=== PATIENT | male | born 2000 | race Caucasian/White ===

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

== ENCOUNTER 2024-06-06 12:39 | Emergency (ER) | payer MEDICAID, SELFPAY ==
[2024-06-06 12:40] VITALS: BP 127/73; PULSE 71; RESP 18; TEMP 37.2; O2SAT 98; BMI 21.6
--- NOTE | 2024-06-06 12:55 | EDS_ITS ---
HPI <ITZ Choi - Last Filed: 06/06/24 14:40> History of Present Illness Chief Complaint: Nausea/Vomiting Narrative Narrative: 24-year-old male states he had 3 drinks and a couple shots of alcohol last night. He vomited once before going to bed at 3:30 AM. He woke up around 10-11 and has vomited several times this morning. According to the person with him he looks pale and was sweaty while vomiting. He denies chest pain, abdominal pain, hematemesis. No recent lower hematochezia. He states he has alcohol maybe a couple times a week but is not a daily drinker. [facility] <ITZ Choi - Last Filed: 06/06/24 14:40> [facility] Medical History (Updated 06/06/24 @ 14:13 by ITZ Choi) Contact with and (suspected) exposure to other viral communicable diseases URI (upper respiratory infection) Home Medications ?Medication ?Instructions ?Recorded ?Last Taken ?Type famotidine 20 mg tablet (Pepcid) 20 mg PO BID 7 days # 14 tabs 06/06/24 Unknown Rx ondansetron 4 mg disintegrating 4 mg PO Q8H PRN PRN Na usea #10 tabs 06/06/24 Unknown Rx tablet Allergy/AdvReac Type Severity Reaction Status Date / Time No Known Allergies Allergy Verified 06/06/24 12:40 Social History Smoking Status: Never smoker ROS <ITZ Choi - Last Filed: 06/06/24 14:40> ROS ED ROS Narrative Constitutional: Negative for fever, chills, malaise. CVS: Negative for chest pain. Respiratory: Negative for shortness of breath. GI: Positive for nausea, vomiting. Negative for abdominal pain. EXAM <ITZ Choi - Last Filed: 06/06/24 14:40> Physical Exam Narrative Exam Narrative: CONST: Patient slightly shaky sitting in bed awake and alert. EYES: Normal inspection. ENT: Normal inspection, slightly dry mucous membranes. NECK: Normal inspection. RESP: No respiratory distress, CTAB. CVS: Regular rate and rhythm, no murmur, no gallop. ABD: Soft and nontender, no guarding or rebound, nondistended, no hepatosplenomegaly. SKIN: Color normal, no rash, warm, dry, intact. EXTREMITIES: Normal appearance, no pedal edema. NEURO: Alert and answering questions appropriately. PSYCH: Normal affect. Const Vital Signs: 06/06/24 12:40 06/06/24 14:21 Temperature 98.9 F 98.9 F Temperature Source Oral Pulse Rate 71 71 Respiratory Rate 18 18 Blood Pressure 127/73 H 127/73 H Blood Pressure Mean 91 91 Pulse Ox 98 98 Oxygen Delivery Method Room Air <Efe Mendez MD - Last Filed: 06/06/24 15:16> Physical Exam Const Vital Signs: 06/06/24 12:40 06/06/24 14:21 Temperature 98.9 F 98.9 F Temperature Source Oral Pulse Rate 71 71 Respiratory Rate 18 18 Blood Pressure 127/73 H 127/73 H Blood Pressure Mean 91 91 Pulse Ox 98 98 Oxygen Delivery Method Room Air MDM <TIZ Choi - Last Filed: 06/06/24 14:40> [facility] MDM Narrative Medical decision making narrative: History gathered from: Patient, family Differential includes but not limited to alcohol abuse, electrolyte derangement, PLACIDO, pancreatitis, gastritis 24-year-old male has acute nausea and vomiting after binge drinking alcohol last night. He appears nontoxic. Vital signs stable. He has slightly dry mucous membranes. His abdomen is soft, nontender. He was initially ordered IV fluids, Zofran, and Pepcid but then patient's family was concerned he never vomits like this after drinking alcohol so although he does not have abdominal pain I ordered blood work to further assess. WBC is 14.9 with the rest of his CBC being unremarkable. Sodium and potassium are normal. BUN 20, creatinine 0.93. Glucose is 62, CO2 17, anion gap 25. Liver enzymes minimally elevated with AST 48, ALT 50. Lipase normal at 20. He feels improved and was able to drink fluids and eat a snack in the ED. I prescribed Pepcid and Zofran as needed for home, I think he is appropriate to continually hydrate at home and return if symptoms worsen. I recommended to decrease alcohol use and he was discharged in stable condition. Lab Data Attestation: I reviewed the patient's lab results. Labs: Laboratory Results - last 24 hr 06/06/24 13:06 WBC 14.9 H RBC 5.61 Hgb 15.7 Hct 48.6 MCV 86.6 MCH 28.0 MCHC 32.3 RDW Std Deviation 42.9 RDW Coeff of Raul 13.4 Plt Count 270 MPV 10.2 Immature Gran % (Auto) 0.300 Neut % (Auto) 84.8 H Lymph % (Auto) 11.1 L [place] % (Auto) 3.3 Eos % (Auto) 0.2 Baso % (Auto) 0.3 Absolute Neuts (auto) 12.6 H Absolute Lymphs (auto) 1.65 Nucleated RBC % 0 Sodium 144 Potassium 3.5 Chloride 101 Carbon Dioxide 17.0 L Anion Gap 25 H BUN 20 H Creatinine 0.93 Estim Creat Clear Calc 123.90 Est GFR (MDRD) Non-Af 118 BUN/Creatinine Ratio 21.6 H Glucose 62 L Calcium 10.1 Total Bilirubin 0.86 AST 48 H ALT 50 H Alkaline Phosphatase 72 Total Protein 8.2 Albumin 5.2 H Globulin 3.0 Albumin/Globulin Ratio 1.7 Lipase 20 <Efe Mendez MD - Last Filed: 06/06/24 15:16> MDM History & Record Review Discussion w/independent historian: Patient and Significant other Lab Data Labs: Laboratory Results - last 24 hr 06/06/24 13:06 WBC 14.9 H RBC 5.61 Hgb 15.7 Hct 48.6 MCV 86.6 MCH 28.0 MCHC 32.3 RDW Std Deviation 42.9 RDW Coeff of Raul 13.4 Plt Count 270 MPV 10.2 Immature Gran % (Auto) 0.300 Neut % (Auto) 84.8 H Lymph % (Auto) 11.1 L [place] % (Auto) 3.3 Eos % (Auto) 0.2 Baso % (Auto) 0.3 Absolute Neuts (auto) 12.6 H Absolute Lymphs (auto) 1.65 Nucleated RBC % 0 Sodium 144 Potassium 3.5 Chloride 101 Carbon Dioxide 17.0 L Anion Gap 25 H BUN 20 H Creatinine 0.93 Estim Creat Clear Calc 123.90 Est GFR (MDRD) Non-Af 118 BUN/Creatinine Ratio 21.6 H Glucose 62 L Calcium 10.1 Total Bilirubin 0.86 AST 48 H ALT 50 H Alkaline Phosphatase 72 Total Protein 8.2 Albumin 5.2 H Globulin 3.0 Albumin/Globulin Ratio 1.7 Lipase 20 Treatment and Re-Evaluation :: Dr. Mendez: I have personally performed a face to face assessment of the patient and have reviewed the NURIS Note. I performed a substantive portion of the visit including all aspects of the following. My veloz findings include: History is nausea and vomiting after drinking alcohol yesterday evening. Epigastric abdominal pain. Exam is afebrile. Vital signs noted. Nontoxic-appearing. Cardiovascular examination reveals a regular rate and rhythm. Lungs clear to auscultation bilaterally. Abdomen is soft with mild tenderness to palpation in the epigastrium, negative Barrios sign. No rebound or guarding. Positive bowel sounds. Neurological examination nonfocal, nonlateralizing. Medical Decision Making: Differential diagnosis includes but not limited to pancreatitis versus alcoholic gastritis. I have low suspicion for any bowel obstruction. Patient administered IV fluids and Pepcid. Labs checked. He does have a leukocytosis which I think is nonspecific, lipase normal at 20. I doubt pancreatitis. CMP grossly unremarkable otherwise except AST of 48 and ALT of 50. At this point in time, I feel he probably has more of a gastritis. I feel he can be discharged to follow-up. Disposition discharged home in stable condition. Other additions or changes: [None] Discharge Plan Triage Chief Complaint: Nausea/Vomiting ED Midlevel Provider: Risa Munroe ED Provider: Efe Mendez Dx/Rx/DC Orders Clinical Impression: Nausea and vomiting, Alcohol consumption binge drinking Instructions: Social Drinking vs Problem Drinking, ED Vomiting (Adult) Prescriptions: New ondansetron 4 mg tablet,disintegrating 4 mg PO Q8H PRN PRN (Reason: Nausea) Qty: 10 0RF famotidine [Pepcid] 20 mg tablet 20 mg PO BID 7 Days Qty: 14 0RF Primary Care Provider: Care Physician,No Primary Referrals: Vandana Adams MD [Non-Staff] - Activity Restrictions/Additional Instructions: You Zofran as needed for nausea or vomiting, drink clear fluids to stay hydra jem, when you feel better eat a bland diet as tolerated. Return if symptoms worsen. Print Language: Sami Disposition Disposition: Home, Self Care Discharge Date/Time: 06/06/24 14:28
[2024-06-06] MEDS: 0.9% Normal Saline (1000mL) 1,000 ML 999 ML IV (13:04)
[2024-06-06] MEDS: Ondansetron 4 MG/2 ML Vial IV (13:05)
[2024-06-06 13:14] LABS: Absolute Lymphocyte Count 1.65 X10^3/uL (0.83-4.51); Absolute Neutrophil Count 12.6 X10^3/uL (2.0-7.7); Basophil# 0.04 X10^3/uL; Basophil% 0.3 % (0-1); Eosinophil# 0.03 X10^3/uL; Eosinophils% 0.2 % (0-5); Hematocrit 48.6 % (40-54); Hemoglobin 15.7 g/dL (13.0-16.5); Lymphocyte # 1.65 X10^3/ul (0.83-4.51); Lymphocyte % 11.1 % (19-41); Mean Corp Hgb Conc 32.3 g/dL (32-36); Mean Corpuscular Volume 86.6 fL (80-94); Mean Platelet Vol. 10.2 fl (6.2-12.0); Monocyte# 0.49 X10^3/uL; Monocyte% 3.3 % (0-10); NRBC Flagged by Analyzer 0 % (0-5); Neutrophil # 12.64 X10^3/uL (2.7-7.7); Neutrophil % 84.8 % (47-70); Platelet Count 270 K/mm3 (150-450); RBC Distribution Width CV 13.4 % (11.6-14.6); RBC Distribution Width SD 42.9 fl (35.1-43.9); Red Blood Count 5.61 M/mm3 (4.6-6.2); White Blood Count 14.9 K/mm3 (4.4-11.0)
[2024-06-06] MEDS: Famotidine 200 MG/20 ML MDV 20 MG in 0.9% Normal Saline (Pres. free 8 ML 300 MG IV (13:43)
[2024-06-06 13:48] LABS: Lipase 20 U/L (13-75)
[2024-06-06 13:49] LABS: ALB/GLOB Ratio 1.7 RATIO (0.9-2.4); AST(SGOT) 48 U/L (<=37); Alanine Aminotransfer ALT/SGPT 50 U/L (<=46); Albumin, Serum 5.2 g/dL (3.5-5.0); Alkaline Phosphatase 72 U/L (40-129); Anion Gap 25 (5-15); BUN 20 mg/dL (4-19); BUN/Creat Ratio 21.6 RATIO (10-20); Calcium,Total 10.1 mg/dL (7.6-11.0); Chloride 101 mmol/L (98-108); Creatinine, Serum 0.93 mg/dL (0.70-1.20); EST Glomerular Filtration Rate 118 (>60); Glucose 62 mg/dL (70-99); Potassium 3.5 mmol/L (3.3-5.1); Protein, Total 8.2 g/dL (5.9-8.4); Sodium Level 144 mmol/L (133-145); Total Bilirubin 0.86 mg/dL (0.00-1.30)
[2024-06-06 14:21] VITALS: BP 127/73; PULSE 71; RESP 18; TEMP 37.2; O2SAT 98
[2024-06-06] MEDS: Famotidine 20 MG Tablet PO (14:25)
== END 2024-06-06 14:28 | disposition home or self-care (01) ==
PROVIDERS: Emergency Provider Emergency Medicine; Visit Provider Emergency Medicine
DX: R11.2 Nausea with vomiting, unspecified (principal); F10.10 Alcohol abuse, uncomplicated
CPT/HCPCS: 80053; 83690; 85025; 96361; 96365; 96375; 99283; A4216; J2405